=== PATIENT | female | born 2005 | race Caucasian/White ===

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

== ENCOUNTER 2024-11-20 08:01 | Emergency (ER) | payer MEDICAID, OTHER ==
[~2024-11-20] VITALS: Ht 149.9 cm; Wt 47.7 kg
[2024-11-20 08:03] VITALS: TEMP 98.4
[2024-11-20 08:26] LABS: APPEARANCE,URINE CLEAR (CLEAR); BILIRUBIN,URINE NEGATIVE (NEGATIVE); COLOR,URINE LIGHT YELLOW (YELLOW); GLUCOSE, URINE (UA) NEGATIVE (NEGATIVE); LEUKOCYTE ESTERASE ,URINE NEGATIVE (NEGATIVE); NITRATE,URINE NEGATIVE (NEGATIVE); OCCULT BLOOD,URINE NEGATIVE (NEGATIVE); PROTEIN,URINE NEGATIVE (NEGATIVE); SPECIFIC GRAVITIY, URINE 1.027 (1.003-1.030); UROBILINOGEN,URINE <=1.0 mg/dL (<=1.0)
[2024-11-20] MEDS: DICYCLOMINE HCL 10 MG CAPSULE PO ONE (08:39)
[2024-11-20] MEDS: IBUPROFEN 400 MG TABLET PO ONE (08:39)
[2024-11-20] MEDS: ACETAMINOPHEN 325 MG TABLET PO ONE (08:39)
[2024-11-20 08:46] LABS: BASOPHILS % (AUTO) 0.5 % (0.0-2.0); HEMATOCRIT 40.4 % (36-46); HEMOGLOBIN 13.8 g/dL (12.0-16.0); LYMPHOCYTES # (AUTO) 2.5 K/uL (1.0-4.8); LYMPHOCYTES % (AUTO) 36.8 % (22.0-44.0); MEAN CORPUSCULAR HEMOGLOBIN 30.3 pg (26.0-34.0); MEAN CORPUSCULAR HGB CONC 34.1 G/dL (31.0-37.0); MEAN CORPUSCULAR VOLUME 89 fL (80-100); MONOCYTES # (AUTO) 0.5 K/uL (0.1-1.0); NEUTROPHILS # (AUTO) 3.3 K/uL (1.8-7.7); NEUTROPHILS % (AUTO) 48.7 % (40.0-70.0); PLATELET COUNT (AUTO) 274 K/uL (150-450); RED BLOOD CELL COUNT(AUTO) 4.56 MIL/uL (4.00-5.20); WHITE BLOOD COUNT (AUTO) 6.8 K/uL (4.5-11.0)
[2024-11-20 08:48] LABS: ANION GAP 5 mmol/L (8-16); CALCIUM, TOTAL 8.4 mg/dL (8.8-10.5); CARBON DIOXIDE 28 mmol/L (22-29); CHLORIDE 104 mmol/L (98-107); CREATININE 0.62 mg/dL (0.60-1.30); GLOMERULAR FILTR. RATE CALC > 60 mL/min (>60); GLUCOSE,RANDOM 93 mg/dL (70-110); POTASSIUM 3.7 mmol/L (3.5-5.1); SODIUM SERUM 137 mmol/L (136-145); UREA NITROGEN, BLOOD 11 mg/dL (7-18)
[2024-11-20] MEDS: KETOROLAC TROMETHAMINE 30 MG/ML VIAL IVP ONE (11:10)
[2024-11-20 11:15] VITALS: BP 97/57; PULSE 76; RESP 16; O2SAT 99
[2024-11-20] MEDS ORDERED: SODIUM CHLORIDE 0.9% 100 ML ONE (12:47)
[2024-11-20] MEDS ORDERED: IOHEXOL 350 MG/ML 100 ML VIAL ONE (12:47)
== END 2024-11-20 11:29 | disposition home or self-care (01) ==
LOC: EMS 08:02
DX: N83.201 Unspecified ovarian cyst, right side (principal)
CPT/HCPCS: 99285; 74177; 96374; 80048; 81003; 84703; 85025; 36415; Q9967; J1885; J7050